=== PATIENT | male | born 1975 | race Caucasian/White ===

== ENCOUNTER 2022-09-22 13:44 | Inpatient (IN) | payer MEDICAID ==
[~2022-09-22] VITALS: Ht 170.2 cm; Wt 79.8 kg
[2022-09-22 14:05] VITALS: BP 143/76
[2022-09-22] MEDS ORDERED: ONDANSETRON 4 MG ODT PO ONE (14:10)
[2022-09-22 15:16] LABS: ALBUMIN 4.2 g/dL (3.4-5.0); ANION GAP 11.8 (8-16); CARBON DIOXIDE 27.1 mmol/L (21-32); POTASSIUM 3.9 mmol/L (3.5-5.1); TOTAL BILIRUBIN 1.4 mg/dL (0.0-1.0)
[2022-09-22 15:18] LABS: BASOPHILS % (AUTO) 0.3 % (0.0-2.0); HEMATOCRIT 46.5 % (36-52); HEMOGLOBIN 15.4 g/dL (12.0-18.0); LYMPHOCYTES # (AUTO) 1.3 K/uL (2.0-11.5); LYMPHOCYTES % (AUTO) 9.1 % (20.5-51.1); MEAN CORPUSCULAR HEMOGLOBIN 28 pg (27-31); MEAN CORPUSCULAR HGB CONC 33 g/dL (33-37); MEAN CORPUSCULAR VOLUME 84.8 fL (80-94); MONOCYTES # (AUTO) 0.4 K/uL (0.8-1.0); MONOCYTES % (AUTO) 2.5 % (1.7-9.3); NEUTROPHILS # (AUTO) 12.7 K/uL (1.8-7.7); NEUTROPHILS % (AUTO) 88.1 % (42.2-75.2); PLATELET COUNT (AUTO) 165 K/uL (140-450); RED BLOOD CELL COUNT(AUTO) 5.48 MIL/uL (4.20-6.10); RED CELL DISTRIBUTION WIDTH 13.4 % (11.6-13.7); WHITE BLOOD COUNT (AUTO) 14.4 K/uL (4.8-10.8)
[2022-09-22 15:43] LABS: APPEARANCE,URINE CLEAR (CLEAR); BILIRUBIN,URINE NEGATIVE (NEGATIVE); BLOOD, URINE NEGATIVE (NEGATIVE); COLOR,URINE YELLOW (YELLOW); LEUKOCYTE ESTERASE ,URINE NEGATIVE (NEGATIVE); NITRITE, URINE NEGATIVE (NEGATIVE); UGLUCOSE NEGATIVE (NEGATIVE)
--- NOTE | 2022-09-22 16:30 | NUR ---
ambulates to br to void urine, denies further nausea or vomiting
--- NOTE | 2022-09-22 19:31 | NUR ---
Patient received on bed lying comfortably and awake. Alert and oriented x4. No acute distress. No complaints of pain or discomfort. Respirations even and unlabored.
--- NOTE | 2022-09-22 20:45 | NUR ---
Patient was taken by Radiologist via wheelchair for CT Scan.
--- NOTE | 2022-09-22 21:10 | NUR ---
Patient transported back to Bed 4 via wheelchair by Radiologist from CT Scan.
[2022-09-22] MEDS ORDERED: CEFEPIME 2,000 MG in DEXTROSE 5% 100 ML IV ONE (22:50)
[2022-09-22] MEDS ORDERED: ONDANSETRON 4 MG/2 ML VIAL IVP ONE (23:00)
[2022-09-22] MEDS ORDERED: MORPHINE SULFATE 4 MG/ML SYR IVP ONE (23:00)
[2022-09-22] MEDS ORDERED: CEFEPIME 1,000 MG VIAL ONE (23:16)
--- NOTE | 2022-09-22 23:17 | NUR ---
PER ANNAL[place] SUPERVISIOR, CALLED AND STATED TO KEEP PT NPO, PT IS SCHEDULED FOR SURGERY AT 0800 09/23/22, PRIMARY NURSE MADE AWARE. MADE AWARE.
[2022-09-22] MEDS ORDERED: CEFEPIME 2,000 MG VIAL IV ONE (23:19)
[2022-09-22] MEDS ORDERED: ONDANSETRON 4 MG/2 ML VIAL IM/IVP PRN (23:25)
[2022-09-22] MEDS ORDERED: HYDROcodone/APAP 5/325 MG 1 TAB TAB PO PRN (23:25)
[2022-09-22] MEDS ORDERED: LORazepam 2 MG/ML VIAL IM/IVP PRN (23:25)
[2022-09-22] MEDS ORDERED: DOCUSATE SODIUM 100 MG GELCAP PO PRN (23:25)
[2022-09-22] MEDS ORDERED: MORPHINE SULFATE 2 MG/ML SYR IVP PRN (23:25)
[2022-09-22] MEDS ORDERED: ZOLPIDEM 5 MG TAB PO PRN (23:25)
[2022-09-22] MEDS ORDERED: ACETAMINOPHEN 325 MG TAB PO PRN (23:25)
[2022-09-23 00:02] LABS: PROTHROMBIN TIME 10.6 secs (10.8-13.4)
[2022-09-23] MEDS ORDERED: cefTRIAXone 1,000 MG VIAL ONE (00:50)
[2022-09-23] MEDS ORDERED: metroNIDAZOLE 500 MG/NS PREMIX 100 ML IV ONE (00:50)
[2022-09-23] MEDS: NACL 0.9% 1,000 ML IV SCH ×6 (01:04→12:13)
[2022-09-23] MEDS ORDERED: metroNIDAZOLE 500 MG/NS PREMIX 100 ML IV SCH (07:00)
[2022-09-23 07:08] LABS: BASOPHILS % (AUTO) 0.3 % (0.0-2.0); EOSINOPHILS % (AUTO) 0.3 % (0.0-4.0); HEMATOCRIT 41.4 % (36-52); HEMOGLOBIN 14.2 g/dL (12.0-18.0); LYMPHOCYTES # (AUTO) 2.1 K/uL (2.0-11.5); LYMPHOCYTES % (AUTO) 17.3 % (20.5-51.1); MEAN CORPUSCULAR HEMOGLOBIN 29 pg (27-31); MEAN CORPUSCULAR HGB CONC 34 g/dL (33-37); MEAN CORPUSCULAR VOLUME 84.5 fL (80-94); MONOCYTES # (AUTO) 0.9 K/uL (0.8-1.0); MONOCYTES % (AUTO) 7.6 % (1.7-9.3); NEUTROPHILS # (AUTO) 8.8 K/uL (1.8-7.7); NEUTROPHILS % (AUTO) 74.5 % (42.2-75.2); PLATELET COUNT (AUTO) 154 K/uL (140-450); RED CELL DISTRIBUTION WIDTH 13.6 % (11.6-13.7); WHITE BLOOD COUNT (AUTO) 11.9 K/uL (4.8-10.8)
[2022-09-23 07:12] LABS: ALBUMIN 3.2 g/dL (3.4-5.0); ANION GAP 9.3 (8-16); CARBON DIOXIDE 25.5 mmol/L (21-32); POTASSIUM 3.8 mmol/L (3.5-5.1); TOTAL BILIRUBIN 2.2 mg/dL (0.0-1.0)
--- NOTE | 2022-09-23 07:52 | NUR ---
PT TAKEN TO SURGERY BY OR STAFF, REPORT TO MONICA GUZMAN PT SHOWS NO AC DISTRESS, ABD PAIN 2/10. NO NAUSEA OR VOMITING, SL PATENT RAC. O2 SAT 99% RA
--- NOTE | 2022-09-23 07:54 | NUR ---
PT HAS ROOM ASSIGNED POST SX, [id number]
[2022-09-23] MEDS ORDERED: PROPOFOL 200 MG/20 ML VIAL IV ONE (08:06)
[2022-09-23] MEDS ORDERED: ROCURONIUM 50 MG/5 ML VIAL IV ONE (08:06)
[2022-09-23] MEDS ORDERED: SUGAMMADEX SODIUM 200 MG/2 ML VIAL IV ONE (08:06)
[2022-09-23] MEDS ORDERED: BUPIVACAINE-MPF 0.25% 30 ML VIAL INJ ONE (08:07)
[2022-09-23] MEDS ORDERED: LIDOCAINE/EPI MPF 1%1:200000 30 ML VIAL INJ ONE (08:07)
[2022-09-23] MEDS ORDERED: MIDAZOLAM 2 MG/2 ML VIAL ONE (08:08)
[2022-09-23] MEDS ORDERED: HYDROmorphone PFS 2 MG/ML SYR ONE (08:13)
[2022-09-23] MEDS ORDERED: CEFEPIME 2,000 MG in DEXTROSE 5% 100 ML IV SCH (08:30)
[2022-09-23] MEDS ORDERED: METOCLOPRAMIDE 10 MG/2 ML INJ VIAL ONE (08:36)
[2022-09-23] MEDS ORDERED: ONDANSETRON 4 MG/2 ML VIAL ONE (08:36)
[2022-09-23] MEDS ORDERED: HYDROmorphone 1 MG/ML AMP IVP PRN ×2 (09:25)
[2022-09-23] MEDS ORDERED: ONDANSETRON 4 MG/2 ML VIAL IVP PRN (09:25)
[2022-09-23] MEDS ORDERED: diphenhydrAMINE 50 MG/ML VIAL IVP PRN (09:25)
[2022-09-23] MEDS ORDERED: LACTATED RINGERS 1,000 ML IV SCH (09:25)
[2022-09-23] MEDS ORDERED: ONDANSETRON 4 MG/2 ML VIAL IV PRN (09:25)
[2022-09-23] MEDS ORDERED: MEPERIDINE 25 MG/ML SYR IVP PRN (09:25)
[2022-09-23] MEDS ORDERED: MORPHINE SULFATE 4 MG/ML SYR IV PRN (09:25)
[2022-09-23 10:15] VITALS: BP 113/60
--- NOTE | 2022-09-23 10:15 | NUR ---
RECEIVED PT FROM OR. REPORT GIVEN BY BISHOP ANDERSON. PLACED IN BED COMFORTABLY. PT S/P LAPAROSCOPIC APPENDECTOMY. ALERT AND ORIENTED X 4, POLISH SPEAKING. RESP. EVEN AND UNLABORED. WITH 3 INCISION TO ABDOMEN WITH DERMABOND. NO BLEEDING, REDNESS NOTED. C/O ABDOMINAL PAIN 01/01. NOT IN ANY DISTRESS NOTED. FAMILY AT BEDSIDE. CALL LIGHT KEPT WITHIN REACH. WILL CONTINUE TO MONITOR.
--- NOTE | 2022-09-23 10:52 | NUR ---
[facility] SWAB COLLECTED. SEND TO LAB.
--- NOTE | 2022-09-23 12:40 | NUR ---
PT STARTED ON SOFT DIET. TOLERATING WELL. NO C/O ABDOMINAL PAIN.
[2022-09-23 15:20] LABS: BARBITURATE, URINE NEGATIVE ng/ml (NEG <=200); BENZODIAZEPINE, URINE NEGATIVE ng/mL (NEG <=200); CANNABINOID, URINE NEGATIVE ng/mL (NEG <=50); COCAINE, URINE NEGATIVE ng/mL (NEG <=300); OPIATE, URINE POSITIVE ng/mL (NEG <=2000); PHENCYCLIDINE SCREEN,URINE NEGATIVE ng/mL (NEG <=25)
[2022-09-23 16:00] VITALS: BP 108/65
--- NOTE | 2022-09-23 19:09 | NUR ---
REPORT GIVEN TO VEGETABLE FARMWORKER CHERDAMIONE FOR CONTINUITY OF CARE. REMAINS STABLE.
--- NOTE | 2022-09-23 19:10 | NUR ---
RECEIVED PT FROM MORNING SHIFT NURSE. PT IS AOX4, MALAY SPEAKING, ABLE TO VERBALIZE NEEDS AND ABLE TO FOLLOW COMMANDS. PT IS AMBULATORY, ON ROOM AIR AND ON SOFT DIET. PT HAS HAS IV ON RIGHT FOREARM GAUGE 20, RUNNING WITH NS AT 60ML/HR. PT HAS 3 SURGICAL INCISION WITH DERMABOND GLUE S/P LAP APPENDECTOMY. NO COMPLAIN OF PAIN AT THIS TIME. NO S/S OF RESPIRATORY DISTRESS NOTED. ALL SAFETY MEASURES IMPLEMENTED. BED IN LOW POSITION, BED WHEELS ON LOCK AND CALL LIGHT WITHIN REACH.
--- NOTE | 2022-09-23 22:00 | NUR ---
TOLD THE PT THAT THE NEXT DUE OF ANTIBIOTICS WILL BE ON 1AM. HE AGREED ON IT. NO COMPLAIN OF PAIN AT THIS TIME. NO S/S OF RESPIRATORY DISTRESS NOTED. ALL SAFETY MEASURES IMPLEMENTED. BED IN LOW POSITION, BED WHEELS ON LOCK AND CALL LIGHT WITHIN REACH.
--- NOTE | 2022-09-24 | NUR ---
PT IS ON SLEEP. CHEST RISE AND FALL SYMMETRICALLY NOTED. RESPIRATION IS EVEN AND UNLABORED. NO S/S OF RESPIRATORY DISTRESS NOTED. ALL SAFETY MEASURES IMPLEMENTED. BED IN LOW POSITION, BED WHEELS ON LOCK AND CALL LIGHT WITHIN REACH.
--- NOTE | 2022-09-24 01:22 | NUR ---
SCHEDULED AND PRESCRIBED MEDICATION WAS GIVEN TO PT PER MD ORDER. ALL SAFETY MEASURES IMPLEMENTED. BED IN LOW POSITION, BED WHEELS ON LOCK AND CALL LIGHT WITHIN REACH.
[2022-09-24 02:15] VITALS: BP 107/57
--- NOTE | 2022-09-24 04:00 | NUR ---
CHECKED THE PT STILL ON SLEEP. CHEST RISE AND FALL SYMMETRICALLY NOTED. RESPIRATION IS EVEN AND UNLABORED. NO S/S OF RESPIRATORY DISTRESS NOTED. ALL SAFETY MEASURES IMPLEMENTED. BED IN LOW POSITION, BED WHEELS ON LOCK AND CALL LIGHT WITHIN REACH.
[2022-09-24 07:08] LABS: BASOPHILS % (AUTO) 0.4 % (0.0-2.0); EOSINOPHILS # (AUTO) 0.1 K/uL (0-0.4); EOSINOPHILS % (AUTO) 0.9 % (0.0-4.0); HEMATOCRIT 39.6 % (36-52); HEMOGLOBIN 13.4 g/dL (12.0-18.0); LYMPHOCYTES # (AUTO) 2.2 K/uL (2.0-11.5); MAGNESIUM 1.9 mg/dL (1.8-2.4); MEAN CORPUSCULAR HEMOGLOBIN 29 pg (27-31); MEAN CORPUSCULAR HGB CONC 34 g/dL (33-37); MEAN CORPUSCULAR VOLUME 84.7 fL (80-94); MONOCYTES # (AUTO) 0.6 K/uL (0.8-1.0); MONOCYTES % (AUTO) 8.7 % (1.7-9.3); NEUTROPHILS # (AUTO) 4.1 K/uL (1.8-7.7); PHOSPHORUS 2.3 mg/dL (2.5-4.9); PLATELET COUNT (AUTO) 140 K/uL (140-450); RED BLOOD CELL COUNT(AUTO) 4.68 MIL/uL (4.20-6.10); RED CELL DISTRIBUTION WIDTH 13.4 % (11.6-13.7)
[2022-09-24 07:16] LABS: CARBON DIOXIDE 28.6 mmol/L (21-32); POTASSIUM 3.6 mmol/L (3.5-5.1)
--- NOTE | 2022-09-24 07:22 | NUR ---
PT IS STABLE. ENDORSED PT TO MORNING SHIFT NURSE FOR CONTINUITY OF CARE.
[2022-09-24] MEDS: NACL 0.9% 1,000 ML IV SCH (08:45)
--- NOTE | 2022-09-24 09:16 | NUR ---
PATIENT HAS BEEN SCREENED AND CATEGORIZED MODERATE NUTRITION RISK. PATIENT WILL BE SEEN WITHIN 3-5 DAYS OF ADMISSION. 09/22/22-09/27/[address]
[2022-09-24] MEDS ORDERED: ACET-10509 PO (13:21)
[2022-09-24] MEDS ORDERED: AMOX-999 PO (13:23)
[2022-09-24 14:14] VITALS: BP 104/63
== END 2022-09-24 15:10 | disposition home or self-care (01) | DRG 234 ==
LOC: MED 13:44 → MTU 23:24
PROVIDERS: ADMIT Student in an Organized Health Care Education/Training Program; ATTEND Student in an Organized Health Care Education/Training Program
PROC: 0DTJ4ZZ Resection of Appendix, Percutaneous Endoscopic Approach (ICD-10-PCS; principal; 2022-09-23 08:00)
DX: K35.30 Acute appendicitis with localized peritonitis, without perforation or gangrene (principal); E87.20 Acidosis, unspecified; E80.6 Other disorders of bilirubin metabolism; Z20.822 Contact with and (suspected) exposure to COVID-19; Z86.73 Personal history of transient ischemic attack (TIA), and cerebral infarction without residual deficits
CPT/HCPCS: 36415; 76705; 80048; 80053; 80305; 81003; 83605; 83690; 83735; 84100; 85025; 85610; 85730; 87040; 87081; 88304; 93005; 96365; 96375; 99285; J0692; J0696; J1170; J2001; J2250; J2270; J2405; J2704; J2765; J3490; J7060; Q0092; Q0162